=== PATIENT | female | born 1990 | race Two or more races ===

== ENCOUNTER 2019-04-12 14:45 | Emergency (ER) | payer SELFPAY ==
[~2019-04-12] VITALS: Ht 160 cm; Wt 54.4 kg
[2019-04-12 14:49] VITALS: BP 122/89
== END 2019-04-12 16:21 | disposition home or self-care (01) ==
LOC: ER 14:55
DX: B99.9 Unspecified infectious disease (principal); H10.89 Other conjunctivitis